=== PATIENT | female | born 1990 | race Caucasian/White ===

== ENCOUNTER 2016-10-25 14:26 | Emergency (ER) | payer MEDICAID ==
[~2016-10-25] VITALS: Ht 170.2 cm; Wt 56.7 kg
--- NOTE | 2016-10-25 14:58 | Emergency Room Report ---
History of Present Illness Time Seen by MD Sullivan Presenting Problem in Triage Pt arrived:Walked Presenting Problem:PT ADVISES SHE HAS HAD A MIGRAINE FOR 2 DAYS Onset of symptoms date/time:/ or onset unknown for:MEDICAL HX UNKNOWN Treatment Prior to Arrival: VE[employer]LE [employer] Provided by: Sepsis Risk Assessment: Temp: 98.2 B/P: 140/90 MAP: 106 Pulse: 82 Resp: 16 Recent fever? N Clinical Suspician of Infection? N Mental Status: 1 - Regular (Normal Baseline) Sepsis Risk:Low Sepsis Risk Have you (or family members/close friends) recently traveled outside the [place]? N If Yes, where/when: Have you had exposure to infectious disease within the past month? N TB? Other? Specify: Source patient Exam Limitations no limitations Comment Pt presents to ER with complaints of left sided migraine for 2 days. Reports that she has a Hx of Migraines and takes Topamax daily for prevention. C/O nausea, sensitivity to light and sound, and no relief with OTC Excedrin. Denies having Triptans to use at home, but has used them in the past with success, cannot remember which one she has used. Timing/Duration days (2) Severity moderate Modifying Factors Worsens With: light, noise. Associated Symptoms nausea, vomiting, photophobia ALLERGIES Coded Allergies: cephalexin (From KEFLEX) (Mild, 10/25/16) metronidazole (From FLAGYL) (Mild, 10/25/16) mometasone furoate (From NASONEX) (Mild, 10/25/16) Home Medications Reported Medications No Known Home Medications History Medical History General CAD? No Angina: No [place]: No Hypertension? No Hyperlipidemia? No CHF? No DVT? No PE? No COPD? No Asthma? No Anemia? No GERD? No Gastric ulcers? No GI Bleed? No Hernia? No Thyroid Problems? No Hypothyroidism? No CVA? No Seizures? No Diabetes? No Renal Insuffiency? No End Stage Renal Disease? No UTI? No Stones? No BPH? No GB Disease: No Nephritic Syndrome? No Asplenia? No Hepatitis? No Sickle Cell Disease? No Arthritis? No Migraines? Yes Cataracts? No Glaucoma? No MRSA? No HIV? No TB? No Anxiety? Yes Depression? Yes Cancer? 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 Social History Smoking Hx Smoker: Current Every Day Smoker Tobacco: Yes Type Cigarettes Review of Systems All Other Systems Reviewed and Negative Eyes photophobia Gastrointestinal nausea, vomiting Psychiatric/Neurological headache Physical Exam Vital Signs Vital Signs Date Time Temp Pulse Resp B/P Pulse O2 O2 Flow FiO2 Ox Delivery Rate 10/25 1510 80 16 125/78 98 10/25 1432 98.2 82 16 140/90 98 General Appearance normal appearance, WD/WN, mild distress Eye Exam - bilateral eye normal exam, bilateral eye PERRL, bilateral eye EOMI Ear, Nose, Throat hearing grossly normal, normal ENT inspection Neck normal inspection, non-tender, supple, full range of motion Respiratory Status Yes: trachea midline, chest symmetrical, non tender chest. No: respiratory distress. Lung Sounds bilateral: normal breath sounds, lungs clear. 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 No Results/Orders Current Medication Orders Sig/Jose Start time Last Medication Dose Route Stop Time Status Admin Ketorolac 60 MG ONCE ONE 10/25 1530 AC Tromethamine IM 10/25 1531 Sumatriptan Succinate 6 MG ONCE ONE 10/25 1500 DC 10/25 IJ 10/25 1501 1455 Sumatriptan Succinate 0 .STK-MED ONE 10/25 1454 DC .ROUTE Progress ED Progress Notes Time 1511 Comment Recheck at 3:10 pt reports that pain level have decreased from a 10 to a 5 and that she is feeling much better. "I feel like I can function again." Departure Departure Time of Disposition 1522 Disposition DC Home or Self Care(routine) Clinical Impression Primary Impression: Migraine Qualifiers: Migraine type: with aura Status migrainosus presence: without status migrainosus Intractability: not intractable Qualified Code: G43.109 - Migraine with aura, not intractable, without status migrainosus Secondary Impressions: Nausea and vomiting in adult patient Condition STABLE Referrals Riky RALPH,A.C. (Family) Patient Instructions DI for Migraine Additional Instructions F/U with PCP to discuss possible change in dose of Topamax, until then, continue daily Topamax for prevention of migraines. Increase fluids, bland/BRATTY diet until nausea has passed. Discharge Counseling Counseled pt/family regarding diagnosis, medications/RX, home care, follow up needs Prescriptions Current Visit Scripts Sumatriptan Succinate (Imitrex) 50 MG PO ONCE #6 TAB Take one at onset of migraine, may repeat in one hour if still has headache. No more than two in 24 hours Ondansetron Hcl (Zofran 8MG Tab) 8 MG PO Q8HP PRN N/V #20 TAB ED Critical Care Critical Care No Comments F/U with PCP to discuss possible change in dose of Topamax, until then, continue daily Topamax for prevention of migraines. Increase fluids, bland/BRATTY diet until nausea has passed. at 1525
--- NOTE | 2016-10-25 14:58 | Emergency Room Report ---
History of Present Illness Time Seen by MD Sullivan Presenting Problem in Triage Pt arrived:Walked Presenting Problem:PT ADVISES SHE HAS HAD A MIGRAINE FOR 2 DAYS Onset of symptoms date/time:/ or onset unknown for:MEDICAL HX UNKNOWN Treatment Prior to Arrival: [employer] Provided by: Sepsis Risk Assessment: Temp: 98.2 B/P: 140/90 MAP: 106 Pulse: 82 Resp: 16 Recent fever? N Clinical Suspician of Infection? N Mental Status: 1 - Regular (Normal Baseline) Sepsis Risk:Low Sepsis Risk Have you (or family members/close friends) recently traveled outside the [place]? N If Yes, where/when: Have you had exposure to infectious disease within the past month? N TB? Other? Specify: Source patient Exam Limitations no limitations Comment Pt presents to ER with complaints of left sided migraine for 2 days. Reports that she has a Hx of Migraines and takes Topamax daily for prevention. C/O nausea, sensitivity to light and sound, and no relief with OTC Excedrin. Denies having Triptans to use at home, but has used them in the past with success, cannot remember which one she has used. Timing/Duration days (2) Severity moderate Modifying Factors Worsens With: light, noise. Associated Symptoms nausea, vomiting, photophobia ALLERGIES Coded Allergies: cephalexin (From KEFLEX) (Mild, 10/25/16) metronidazole (From FLAGYL) (Mild, 10/25/16) mometasone furoate (From NASONEX) (Mild, 10/25/16) Home Medications Reported Medications No Known Home Medications History Medical History General CAD? No Angina: No [place]: No Hypertension? No Hyperlipidemia? No CHF? No DVT? No PE? No COPD? No Asthma? No Anemia? No GERD? No Gastric ulcers? No GI Bleed? No Hernia? No Thyroid Problems? No Hypothyroidism? No CVA? No Seizures? No Diabetes? No Renal Insuffiency? No End Stage Renal Disease? No UTI? No Stones? No BPH? No GB Disease: No Nephritic Syndrome? No Asplenia? No Hepatitis? No Sickle Cell Disease? No Arthritis? No Migraines? Yes Cataracts? No Glaucoma? No MRSA? No HIV? No TB? No Anxiety? Yes Depression? Yes Cancer? 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 Social History Smoking Hx Smoker: Current Every Day Smoker Tobacco: Yes Type Cigarettes Review of Systems All Other Systems Reviewed and Negative Eyes photophobia Gastrointestinal nausea, vomiting Psychiatric/Neurological headache Physical Exam Vital Signs Vital Signs Date Time Temp Pulse Resp B/P Pulse O2 O2 Flow FiO2 Ox Delivery Rate 10/25 1510 80 16 125/78 98 10/25 1432 98.2 82 16 140/90 98 General Appearance normal appearance, WD/WN, mild distress Eye Exam - bilateral eye normal exam, bilateral eye PERRL, bilateral eye EOMI Ear, Nose, Throat hearing grossly normal, normal ENT inspection Neck normal inspection, non-tender, supple, full range of motion Respiratory Status Yes: trachea midline, chest symmetrical, non tender chest. No: respiratory distress. Lung Sounds bilateral: normal breath sounds, lungs clear. 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 No Results/Orders Current Medication Orders Sig/Jose Start time Last Medication Dose Route Stop Time Status Admin Ketorolac 60 MG ONCE ONE 10/25 1530 AC Tromethamine IM 10/25 1531 Sumatriptan Succinate 6 MG ONCE ONE 10/25 1500 DC 10/25 IJ 10/25 1501 1455 Sumatriptan Succinate 0 .STK-MED ONE 10/25 1454 DC .ROUTE Progress ED Progress Notes Time 1511 Comment Recheck at 3:10 pt reports that pain level have decreased from a 10 to a 5 and that she is feeling much better. "I feel like I can function again." Departure Departure Time of Disposition 1522 Disposition DC Home or Self Care(routine) Clinical Impression Primary Impression: Migraine Qualifiers: Migraine type: with aura Status migrainosus presence: without status migrainosus Intractability: not intractable Qualified Code: G43.109 - Migraine with aura, not intractable, without status migrainosus Secondary Impressions: Nausea and vomiting in adult patient Condition STABLE Referrals Riky RALPH,A.C. (Family) Patient Instructions DI for Migraine Additional Instructions F/U with PCP to discuss possible change in dose of Topamax, until then, continue daily Topamax for prevention of migraines. Increase fluids, bland/BRATTY diet until nausea has passed. Discharge Counseling Counseled pt/family regarding diagnosis, medications/RX, home care, follow up needs Prescriptions Current Visit Scripts Sumatriptan Succinate (Imitrex) 50 MG PO ONCE #6 TAB Take one at onset of migraine, may repeat in one hour if still has headache. No more than two in 24 hours Ondansetron Hcl (Zofran 8MG Tab) 8 MG PO Q8HP PRN N/V #20 TAB ED Critical Care Critical Care No Comments F/U with PCP to discuss possible change in dose of Topamax, until then, continue daily Topamax for prevention of migraines. Increase fluids, bland/BRATTY diet until nausea has passed. at 1520
[2016-10-25] MEDS ORDERED: IMITREX50 MG PO (15:21)
[2016-10-25] MEDS ORDERED: ZOFRAN 8MG TABLE8 MG PO (15:21)
[2016-10-25 15:41] VITALS: BP 112/65
[2016-12-18] MEDS ORDERED: IBUPROFEN800 MG PO (20:46)
== END 2016-10-25 15:42 | disposition home or self-care (01) ==
LOC: ER 14:26
DX: G43.109 Migraine with aura, not intractable, without status migrainosus (principal); Z72.0 Tobacco use; F41.8 Other specified anxiety disorders

== ENCOUNTER → 2016-12-24 | Outpatient (CLI) | payer MEDICAID ==
[~2016-12-24] MED LIST: IBUPROFEN800 MG PO; IMITREX50 MG PO; ZOFRAN 8MG TABLE8 MG PO
--- NOTE | 2016-12-27 07:37 | RADIOLOGY REPORT PS360 ---
MRI-LOW EXT ANY JOINT W/O-RT HISTORY: Right anterior and posterior knee pain, twisting injury with pain. Pain anterior to medial posteriorly RT ANTERIOR/POSTERIOR KNEE PAIN ORDERING PHYSICIAN: Tamra Tinajero APRN PATIENT AGE: 26 years COMPARISON: Radiograph of 12/18/2016 TECHNIQUE: Standard multiplanar multiecho sequences are performed without contrast. FINDINGS: Cruciate ligaments are intact. The collateral ligaments, patellar tendon, and quadriceps tendon are intact. No meniscal tear. Patellar cartilage is well preserved. No fracture or bone bruise. There is a small knee joint effusion. IMPRESSION: 1. No evidence of internal derangement. No fracture or bone bruise. 2. Small knee joint effusion
== END ==
LOC: RAD 14:18
DX: M25.561 Pain in right knee (principal)